=== PATIENT | male | born 1980 | race Caucasian/White ===

== ENCOUNTER → 2020-08-15 | Outpatient (CLI) | payer MEDICAID, OTHER | LOC: M OUTALCOH 08:14 | PROVIDERS: ATTEND Psychiatry & Neurology Psychiatry | DX: F16.20 Hallucinogen dependence, uncomplicated (principal); F10.20 Alcohol dependence, uncomplicated ==

== ENCOUNTER → 2020-08-20 | Outpatient (CLI) | payer OTHER ==
[2020-08-21 17:07] LABS: TESTOSTERONE FREE (DIRECT) 16.3 pg/mL (8.7-25.1)
== END ==
LOC: M LAB 09:35
PROVIDERS: ATTEND Urology
DX: N52.9 Male erectile dysfunction, unspecified (principal)

== ENCOUNTER 2020-08-28 13:00 | Outpatient (RCR) | payer MEDICAID | END 2020-09-14 | LOC: M OUTALCOH 13:00 | PROVIDERS: ATTEND Psychiatry & Neurology Psychiatry | DX: F10.20 Alcohol dependence, uncomplicated (principal); F16.20 Hallucinogen dependence, uncomplicated; F14.10 Cocaine abuse, uncomplicated; F17.200 Nicotine dependence, unspecified, uncomplicated ==

== ENCOUNTER → 2020-11-05 | Outpatient (REF) | payer MEDICAID, OTHER ==
[2020-11-05 17:59] LABS: BASO % 0.3 % (0.0-1.0); EOS # 0.3 10^3/uL (0.0-0.5); EOS % 2.1 % (0.0-3.0); HEMATOCRIT 48.7 % (42.0-52.0); HEMOGLOBIN 16.3 g/dl (13.5-17.5); LYMPH # 2.9 10^3/uL (1.5-5.0); LYMPH % 24.7 % (24.0-44.0); MEAN CORPUSCULAR HEMOGLOBIN 30.3 pg (27.0-33.0); MEAN CORPUSCULAR HGB CONC 33.5 g/dl (32.0-36.5); MEAN CORPUSCULAR VOLUME 90.5 fl (80.0-96.0); MONO # 1.3 10^3/uL (0.0-0.8); MONO % 11.3 % (2.0-8.0); NEUTROPHILS # 7.2 10^3/uL (1.5-8.5); NEUTROPHILS % 61.3 % (36.0-66.0); PLATELET COUNT, AUTOMATED 255 10^3/uL (150-450); RED BLOOD COUNT 5.38 10^6/uL (4.30-6.10); WHITE BLOOD COUNT 11.8 10^3/uL (4.0-10.0)
[2020-11-05 18:16] LABS: ALBUMIN 3.7 GM/DL (3.2-5.2); ALT/SGPT 45 U/L (12-78); BILIRUBIN,TOTAL 0.4 MG/DL (0.2-1.0); BLOOD UREA NITROGEN 15 MG/DL (7-18); CARBON DIOXIDE LEVEL 28 MEQ/L (21-32); CHLORIDE LEVEL 109 MEQ/L (98-107); CHOLESTEROL LEVEL 198 MG/DL (<200); CHOLESTEROL RISK RATIO 4.604 (<5); CREATININE FOR GFR 1.03 MG/DL (0.70-1.30); GLOMERULAR FILTRATION RATE > 60.0 (>60); GLUCOSE, FASTING 93 MG/DL (70-100); HDL CHOLESTEROL 43 MG/DL (>40); LDL CHOLESTEROL 84 MG/DL (<100); NON-HDL-C 155 MG/DL; POTASSIUM SERUM 4.4 MEQ/L (3.5-5.1); SODIUM LEVEL 143 MEQ/L (136-145); TOTAL PROTEIN 6.7 GM/DL (6.4-8.2); TRIGLYCERIDES LEVEL 356 MG/DL (<150)
[2020-11-05 18:55] LABS: HEPATITIS C VIRUS ABY INDEX 0.7 INDEX (<0.8)
== END ==
LOC: M LAB REF 16:26
PROVIDERS: ATTEND Pediatrics
DX: Z11.4 Encounter for screening for human immunodeficiency virus [HIV] (principal); Z11.59 Encounter for screening for other viral diseases; Z76.89 Persons encountering health services in other specified circumstances; F10.10 Alcohol abuse, uncomplicated

== ENCOUNTER 2020-12-01 19:55 | Emergency (ER) | payer OTHER, MEDICAID ==
[~2020-12-01] VITALS: Ht 182.9 cm; Wt 109.1 kg
[~2020-12-01 19:55] MED LIST: HYDR-3363 PO; LOSA100T50 PO; LOSA50TA88 PO; PANT40TA29 PO; SERT25TA21 PO; SUCR1TAB56 PO
[2020-12-01] MEDS ORDERED: NS 1,000 ML IV ONE (21:20)
[2020-12-01] MEDS ORDERED: ONDANSETRON 4MG/2ML VIAL IV ONE (21:20)
[2020-12-01] MEDS: MORPHINE 4 MG/ML 1ML VIAL/SYRINGE (J2270) IV PRN ×2 (21:43→22:55)
[2020-12-01 22:00] VITALS: BP 166/104
[2020-12-01] MEDS ORDERED: ISOVUE-370 76% 100ML VIAL As Ordered ONE (22:08)
[2020-12-01 22:19] LABS: BASO % 0.4 % (0.0-1.0); EOS # 0.3 10^3/uL (0.0-0.5); EOS % 2.2 % (0.0-3.0); HEMATOCRIT 45.2 % (42.0-52.0); HEMOGLOBIN 15.8 g/dl (13.5-17.5); LYMPH # 3.8 10^3/uL (1.5-5.0); LYMPH % 33.7 % (24.0-44.0); MEAN CORPUSCULAR HEMOGLOBIN 30.9 pg (27.0-33.0); MEAN CORPUSCULAR VOLUME 88.5 fl (80.0-96.0); MONO # 0.9 10^3/uL (0.0-0.8); MONO % 7.6 % (2.0-8.0); NEUTROPHILS # 6.3 10^3/uL (1.5-8.5); NEUTROPHILS % 55.7 % (36.0-66.0); PLATELET COUNT, AUTOMATED 229 10^3/uL (150-450); RED BLOOD COUNT 5.11 10^6/uL (4.30-6.10); WHITE BLOOD COUNT 11.3 10^3/uL (4.0-10.0)
[2020-12-01 22:31] LABS: INR 0.96; PARTIAL THROMBOPLASTIN TIME 27.9 SECONDS (24.2-38.5)
[2020-12-01 23:03] LABS: ALBUMIN 3.8 GM/DL (3.2-5.2); ALT/SGPT 49 U/L (12-78); BILIRUBIN,DIRECT 0.1 MG/DL (0.0-0.2); BILIRUBIN,TOTAL 0.4 MG/DL (0.2-1.0); CK-MB VALUE MASS 1.5 NG/ML (<3.6); CPK CREATINE PHOSPHOKINASE 255 U/L (39-308); ETHYL ALCOHOL (ETHANOL) 0.211 % (0.000-0.010); LIPASE 115 U/L (73-393); MB/CK RELATIVE INDEX 0.59 (< OR =4); TOTAL PROTEIN 6.7 GM/DL (6.4-8.2); TROPONIN I < 0.02 NG/ML (< 0.10)
--- NOTE | 2020-12-01 23:15 | REPVR ---
PROCEDURE INFORMATION: Exam: CT Abdomen And Pelvis With Contrast Exam date and time: 12/01/2020 10:35 PM Age: 40 years old Clinical indication: Abdominal pain; Generalized; Additional info: Ruq/rlq abd pain, rectal bleeding TECHNIQUE: Imaging protocol: Computed tomography of the abdomen and pelvis with contrast. Axial, coronal and sagittal reformatted images were created and reviewed. Radiation optimization: All CT scans at this facility use at least one of these dose optimization techniques: automated exposure control; mA and/or kV adjustment per patient size (includes targeted exams where dose is matched to clinical indication); or iterative reconstruction. Contrast material: ISOVUE 370; Contrast volume: 100 ml; Contrast route: INTRAVENOUS (IV); COMPARISON: No relevant prior studies available. FINDINGS: Lungs: Mild dependent atelectatic change at the lung bases. Liver: Mild hepatic steatosis. Gallbladder and bile ducts: No radiodense gallstones. No biliary ductal dilatation. Pancreas: Unremarkable. Spleen: Unremarkable. Adrenal glands: Normal. No mass. Kidneys and ureters: No mass. No radiodense calculi. No hydronephrosis. Stomach and bowel: No bowel wall thickening. No obstruction. No pneumatosis. Appendix: Normal. Intraperitoneal space: No free fluid. No organized fluid collection. No free air. Vasculature: Mild atherosclerotic disease. No aneurysm or dissection. Lymph nodes: No pathologically enlarged lymph nodes. Urinary bladder: Unremarkable as visualized. Reproductive: Unremarkable. Bones/joints: No acute osseous abnormality. Mild degenerative changes. Soft tissues: Unremarkable. IMPRESSION: 1. No CT evidence of acute intra-abdominal or pelvic pathology. 2. Additional findings, as above. Electronically signed by: Brett Barroso On 12/01/2020 23:14:25 PM
--- NOTE | 2020-12-02 06:05 | ECGEPIP ---
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
== END 2020-12-02 01:21 | disposition home or self-care (01) ==
LOC: M ED 19:55
DX: K62.5 Hemorrhage of anus and rectum (principal); I10 Essential (primary) hypertension; F15.11 Other stimulant abuse, in remission; F14.11 Cocaine abuse, in remission; F17.200 Nicotine dependence, unspecified, uncomplicated; Z80.0 Family history of malignant neoplasm of digestive organs; Z79.899 Other long term (current) drug therapy; Z88.0 Allergy status to penicillin; Z88.5 Allergy status to narcotic agent
CPT/HCPCS: 74177; 80047; 80076; 82077; 82550; 82553; 83605; 83690; 85025; 85610; 85730; 86850; 86900; 86901; 93005; 93041; 96360; 96374; 96375; 96376; 99284; J2270; J2405; Q9967

== ENCOUNTER → 2020-12-22 | Outpatient (CLI) | payer OTHER, MEDICAID ==
[2020-12-22 11:39] LABS: BLOOD UREA NITROGEN 14 MG/DL (7-18); CALCIUM LEVEL 9.2 MG/DL (8.5-10.1); CARBON DIOXIDE LEVEL 28 MEQ/L (21-32); CHLORIDE LEVEL 105 MEQ/L (98-107); CREATININE FOR GFR 1.03 MG/DL (0.70-1.30); GLOMERULAR FILTRATION RATE > 60.0 (>60); GLUCOSE, FASTING 114 MG/DL (70-100); MAGNESIUM LEVEL 2.2 MG/DL (1.8-2.4); POTASSIUM SERUM 3.7 MEQ/L (3.5-5.1); SODIUM LEVEL 140 MEQ/L (136-145)
== END ==
LOC: M LAB 10:19
PROVIDERS: ATTEND Internal Medicine Cardiovascular Disease
DX: R94.31 Abnormal electrocardiogram [ECG] [EKG] (principal); I10 Essential (primary) hypertension; R23.2 Flushing

== ENCOUNTER → 2020-12-23 | Outpatient (REF) | payer OTHER, MEDICAID | LOC: M LAB REF 13:01 | PROVIDERS: ATTEND Internal Medicine Cardiovascular Disease | DX: R94.31 Abnormal electrocardiogram [ECG] [EKG] (principal); I10 Essential (primary) hypertension; R23.2 Flushing ==

== ENCOUNTER → 2021-01-01 | Outpatient (REF) | payer OTHER, MEDICAID | LOC: M LAB REF 15:13 | PROVIDERS: ATTEND Internal Medicine Cardiovascular Disease | DX: R23.2 Flushing (principal); R94.31 Abnormal electrocardiogram [ECG] [EKG]; I10 Essential (primary) hypertension ==

== ENCOUNTER 2021-02-02 12:58 | Emergency (ER) | payer OTHER ==
[~2021-02-02] VITALS: Ht 180.3 cm; Wt 107.2 kg
[~2021-02-02 12:58] MED LIST changes: -AMLO1TAB24; -ANOR1AER; -ASMA1AER3; -BUSP10TA; -CELE1CAP7; -FLUTISP; +LOSA100T45 PO; -LOSA100T50 PO; +LOSA50TA28 PO; -LOSA50TA88 PO; -VALS1TAB68
[2021-02-02] MEDS ORDERED: CELE1CAP7 PO (13:05)
[2021-02-02] MEDS ORDERED: FLUTISP NARES (13:05)
[2021-02-02] MEDS ORDERED: ASMA1AER3 INH (13:05)
[2021-02-02] MEDS ORDERED: VALS1TAB68 PO (13:05)
[2021-02-02] MEDS ORDERED: BUSP10TA PO (13:05)
[2021-02-02] MEDS ORDERED: ANOR1AER INH (13:05)
[2021-02-02] MEDS ORDERED: AMLO1TAB24 PO (13:05)
[2021-02-02 14:05] LABS: BASO % 0.4 % (0.0-1.0); EOS # 0.2 10^3/uL (0.0-0.5); HEMATOCRIT 46.1 % (42.0-52.0); HEMOGLOBIN 16.2 g/dl (13.5-17.5); LYMPH # 1.7 10^3/uL (1.5-5.0); LYMPH % 15.4 % (24.0-44.0); MEAN CORPUSCULAR HEMOGLOBIN 31.8 pg (27.0-33.0); MEAN CORPUSCULAR HGB CONC 35.1 g/dl (32.0-36.5); MEAN CORPUSCULAR VOLUME 90.6 fl (80.0-96.0); NEUTROPHILS # 8.2 10^3/uL (1.5-8.5); NEUTROPHILS % 72.8 % (36.0-66.0); PLATELET COUNT, AUTOMATED 221 10^3/uL (150-450); RED BLOOD COUNT 5.09 10^6/uL (4.30-6.10); WHITE BLOOD COUNT 11.2 10^3/uL (4.0-10.0)
[2021-02-02 14:34] LABS: BLOOD UREA NITROGEN 11 MG/DL (7-18); CARBON DIOXIDE LEVEL 29 MEQ/L (21-32); CHLORIDE LEVEL 105 MEQ/L (98-107); CREATININE FOR GFR 0.99 MG/DL (0.70-1.30); GLOMERULAR FILTRATION RATE > 60.0 (>60); GLUCOSE, FASTING 185 MG/DL (70-100); POTASSIUM SERUM 3.3 MEQ/L (3.5-5.1); SODIUM LEVEL 138 MEQ/L (136-145)
[2021-02-02 14:35] LABS: ALBUMIN 3.5 GM/DL (3.2-5.2); ALT/SGPT 77 U/L (12-78); BILIRUBIN,DIRECT 0.2 MG/DL (0.0-0.2); BILIRUBIN,TOTAL 0.7 MG/DL (0.2-1.0); CALCIUM LEVEL 8.8 MG/DL (8.5-10.1); LIPASE 97 U/L (73-393); TOTAL PROTEIN 6.6 GM/DL (6.4-8.2)
[2021-02-02] MEDS ORDERED: PANTOPRAZOLE 40MG VIAL (C9113 PER 1) IV ONE (15:25)
[2021-02-02 15:35] LABS: ETHYL ALCOHOL (ETHANOL) < 0.003 % (0.000-0.010)
[2021-02-02] MEDS ORDERED: hydrALAZINE 20MG/ML 1ML VIAL (J0360 PER 20MG) IV ONE (15:55)
[2021-02-02 16:03] VITALS: BP 174/111
[2021-02-02] MEDS: GASTROGRAFIN SOLUTION 30ML PO SCH ×2 (16:14→16:45)
[2021-02-02] MEDS ORDERED: LORazepam 2 MG/ML VIAL IV STA (17:25)
[2021-02-02] MEDS ORDERED: ISOVUE-370 76% 100ML VIAL As Ordered ONE (17:45)
[2021-02-02] MEDS ORDERED: PANT40TA29 PO (19:08)
[2021-02-02 19:50] VITALS: BP 177/89
== END 2021-02-02 19:50 | disposition home or self-care (01) ==
LOC: M ED 12:58
DX: K29.20 Alcoholic gastritis without bleeding (principal); K20.90 Esophagitis, unspecified without bleeding; I10 Essential (primary) hypertension; K76.0 Fatty (change of) liver, not elsewhere classified; K21.9 Gastro-esophageal reflux disease without esophagitis; F10.20 Alcohol dependence, uncomplicated; Z79.899 Other long term (current) drug therapy; Z88.0 Allergy status to penicillin; Z88.1 Allergy status to other antibiotic agents; Z88.5 Allergy status to narcotic agent
CPT/HCPCS: 74177; 80048; 80076; 82077; 83690; 85025; 93005; 96374; 96375; 99285; C9113; J0360; J2060; Q9963; Q9967

== ENCOUNTER → 2021-02-02 | Outpatient (CLI) | payer OTHER ==
[~2021-02-02] MED LIST changes: +AMLO1TAB24; +ANOR1AER; +ASMA1AER3; +BUSP10TA; +CELE1CAP7; +FLUTISP; +VALS1TAB68
== END ==
LOC: M SLEEP HO 10:48
PROVIDERS: ATTEND Internal Medicine Cardiovascular Disease
DX: R00.1 Bradycardia, unspecified (principal); E66.09 Other obesity due to excess calories; I10 Essential (primary) hypertension

== ENCOUNTER 2021-02-05 05:14 | Inpatient (IN) | payer OTHER ==
[~2021-02-05] VITALS: Ht 182.9 cm; Wt 109.1 kg
[~2021-02-05 05:14] MED LIST changes: +AMLO1TAB24 PO; +ANOR1AER INH; +ASMA1AER3 INH; +BUSP10TA PO; +CELE1CAP7 PO; +FLUTISP NARES; -LOSA100T45 PO; +LOSA100T50 PO; -LOSA50TA28 PO; +LOSA50TA88 PO; +VALS1TAB68 PO
[2021-02-05 06:07] LABS: BASO # 0.1 10^3/uL (0.0-0.2); BASO % 0.5 % (0.0-1.0); EOS # 0.2 10^3/uL (0.0-0.5); EOS % 2.5 % (0.0-3.0); HEMATOCRIT 46.8 % (42.0-52.0); HEMOGLOBIN 16.4 g/dl (13.5-17.5); LYMPH # 2.4 10^3/uL (1.5-5.0); LYMPH % 24.9 % (24.0-44.0); MEAN CORPUSCULAR HEMOGLOBIN 31.7 pg (27.0-33.0); MEAN CORPUSCULAR VOLUME 90.5 fl (80.0-96.0); MONO # 1.1 10^3/uL (0.0-0.8); MONO % 11.2 % (2.0-8.0); NEUTROPHILS # 5.9 10^3/uL (1.5-8.5); NEUTROPHILS % 60.6 % (36.0-66.0); PLATELET COUNT, AUTOMATED 286 10^3/uL (150-450); RED BLOOD COUNT 5.17 10^6/uL (4.30-6.10); WHITE BLOOD COUNT 9.7 10^3/uL (4.0-10.0)
[2021-02-05 06:31] LABS: ALT/SGPT 91 U/L (12-78); BLOOD UREA NITROGEN 6 MG/DL (7-18); CALCIUM LEVEL 8.8 MG/DL (8.5-10.1); CARBON DIOXIDE LEVEL 27 MEQ/L (21-32); CHLORIDE LEVEL 106 MEQ/L (98-107); CREATININE FOR GFR 1.18 MG/DL (0.70-1.30); GLOMERULAR FILTRATION RATE > 60.0 (>60); GLUCOSE, FASTING 139 MG/DL (70-100); POTASSIUM SERUM 3.7 MEQ/L (3.5-5.1); SODIUM LEVEL 146 MEQ/L (136-145)
[2021-02-05 06:32] LABS: ALBUMIN 3.6 GM/DL (3.2-5.2); BILIRUBIN,DIRECT 0.1 MG/DL (0.0-0.2); BILIRUBIN,TOTAL 0.2 MG/DL (0.2-1.0); CPK CREATINE PHOSPHOKINASE 328 U/L (39-308); LIPASE 182 U/L (73-393); MB/CK RELATIVE INDEX 0.61 (< OR =4); TOTAL PROTEIN 6.9 GM/DL (6.4-8.2); TROPONIN I < 0.02 NG/ML (< 0.10)
[2021-02-05] MEDS ORDERED: NS 1,000 ML IV ONE (06:35)
[2021-02-05] MEDS ORDERED: PROMETHAZINE INJ 25 MG/ML VIAL (J2550) IV ONE (06:35)
[2021-02-05] MEDS ORDERED: ISOVUE-370 76% 100ML VIAL As Ordered ONE (06:39)
--- NOTE | 2021-02-05 06:42 | ECGEPIP ---
[facility] - ED Test Date: 2021-02-05 Pat Name: ELIS KRAUS Department: Room: - Gender: Male Rn [employer]: MARIANA : 1980 Requested By: KEN White Order Number: [id number] Reading MD: Tawanda Maxwell Measurements Intervals [place] Rate: 92 P: 61 TN: 138 QRS: -25 QRSD: 90 T: 20 QT: 368 QTc: 455 Interpretive Statements Normal sinus rhythm SIMILAR TO 02/02/21 Electronically Signed on 02-05-2021 6:42:04 EDT by Tawanda Maxwell
[2021-02-05 06:43] LABS: ETHYL ALCOHOL (ETHANOL) 0.182 % (0.000-0.010)
[2021-02-05 07:40] LABS: RSV AMPLIFICATION NEGATIVE (NEGATIVE)
--- NOTE | 2021-02-05 07:40 | REPVR ---
PROCEDURE INFORMATION: Exam: XR Chest Exam date and time: 02/05/2021 5:35 AM Age: 40 years old Clinical indication: Other: Ap; Additional info: Abdominal pain TECHNIQUE: Imaging protocol: XR of the chest. Views: 1 view. COMPARISON: CR Chest, 1 view 11/13/2020 12:00 AM FINDINGS: Lungs: No consolidation. Pleural spaces: No pleural effusion. No pneumothorax. Heart/Mediastinum: No cardiomegaly. Bones/joints: Unremarkable. IMPRESSION: 1. There is no evidence of active pulmonary disease. 2. A followup PA and lateral radiograph is recommended when the patient is clinically able. Electronically signed by: Aravind Neff On 02/05/2021 07:40:16 AM
--- NOTE | 2021-02-05 07:43 | REPVR ---
PROCEDURE INFORMATION: Exam: CT Abdomen And Pelvis With Contrast Exam date and time: 02/05/2021 6:32 AM Age: 40 years old Clinical indication: Abdominal pain; Epigastric; Additional info: Epigastric pain, vomiting TECHNIQUE: Imaging protocol: Computed tomography of the abdomen and pelvis with contrast. Radiation optimization: All CT scans at this facility use at least one of these dose optimization techniques: automated exposure control; mA and/or kV adjustment per patient size (includes targeted exams where dose is matched to clinical indication); or iterative reconstruction. Contrast material: ISO; Contrast volume: 100 ml; Contrast route: INTRAVENOUS (IV); COMPARISON: CT ABD/PEL W/IV ORAL CONTRAS 02/02/2021 5:47 PM FINDINGS: Mediastinal space: There is a small hiatal hernia. Liver: There is fatty infiltration of the liver. Gallbladder and bile ducts: No calcified stones. No ductal dilation. Pancreas: Normal. No ductal dilation. Spleen: Normal. No splenomegaly. Adrenal glands: Normal. No mass. Kidneys and ureters: Normal. No hydronephrosis. Stomach and bowel: No obstruction. Appendix: No evidence of appendicitis. Intraperitoneal space: No free air. No significant fluid collection. Vasculature: No abdominal aortic aneurysm. Lymph nodes: No enlarged lymph nodes. Urinary bladder: Unremarkable as visualized. Reproductive: Unremarkable as visualized. Bones/joints: There are mild degenerative changes of the spine. Soft tissues: Unremarkable. IMPRESSION: There is no acute intra-abdominal finding. Electronically signed by: Aravind Neff On 02/05/2021 07:42:51 AM
[2021-02-05] MEDS: BUDESONIDE 180MCG INHALER (PULMICORT FLEXHALER) INH SCH ×2 (08:00→20:00)
[2021-02-05] MEDS: SALMETEROL DISKUS 50MCG INHALER (SEREVENT) INH SCH ×2 (08:00→20:00)
[2021-02-05] MEDS ORDERED: VENTAER INH (08:52)
[2021-02-05] MEDS ORDERED: PANT40TA29 PO (08:52)
[2021-02-05] MEDS: MORPHINE 4 MG/ML 1ML VIAL/SYRINGE (J2270) IV PRN ×2 (09:56→12:10)
[2021-02-05] MEDS ORDERED: ACETAMINOPHEN TAB 650MG DOSE (2X325MG) PO PRN (10:55)
[2021-02-05] MEDS ORDERED: MAALOX 30 ML SUSP *UDC PO PRN (10:55)
[2021-02-05] MEDS ORDERED: LORazepam 2 MG TAB PO PRN (10:55)
[2021-02-05] MEDS ORDERED: MOM 30ML SUSPENSION UDC PO PRN (10:55)
[2021-02-05] MEDS ORDERED: SUCRALFATE SUSP 1GM/10ML UD PO SCH (11:00)
[2021-02-05] MEDS ORDERED: ALBUTEROL 90 MCG/ACT 8GM HFA INHALER INH PRN (11:05)
[2021-02-05] MEDS: TIOTROPIUM INHALER/CAPSULE (SPIRIVA) INH SCH (11:54)
[2021-02-05] MEDS: MULTIVITAMINS/MINERALS THERAP 1 TAB PO SCH (11:57)
[2021-02-05] MEDS: THIAMINE 100 MG TAB PO SCH ×2 (11:57→21:00)
[2021-02-05] MEDS: NS 0.45% 1,000 ML IV SCH (11:57)
[2021-02-05] MEDS: FOLIC ACID 1 MG TAB PO SCH (11:57)
[2021-02-05] MEDS: SUCRALFATE SUSP 1GM/10ML UD PO SCH ×3 (11:57→21:00)
[2021-02-05 12:44] LABS: INR 0.93; PROTHROMBIN TIME 12.7 SECONDS (12.5-14.3)
[2021-02-05 12:45] LABS: PARTIAL THROMBOPLASTIN TIME 27.7 SECONDS (24.2-38.5)
[2021-02-05 16:20] VITALS: BP 152/102
--- NOTE | 2021-02-05 16:36 | HPEPDOC ---
General Date of Admission Feb 05, 2021 at 10:28 Date of Service: Feb 05, 2021 Attending Physician: LEOLA GUILLEN MD Chief Complaint The patient is a 40-year-old male admitted with a reason for visit of Chronic Alcoholic Gastritis. Source: Patient Exam Limitations: No limitations History of Present Illness History of present illness: Mr. 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 He states this pain is sharp, constant, and radiates to his right shoulder. The pain is made worse with eating and equally affected by solids, liquids, and medications like tums. He states that every time he consumes food he feels a sharp pain in his stomach and starts to vomit. He has noticed blood in the vomit in the form of "chunks". This morning his vomit looked "dark brown". He sees a GI doctor in [place] and had an EGD last year that was negative for esophageal varices. He takes protonix and sucralfate but has not been able to "keep down" any of his medications since last Tuesday. He has a history of chronic alcoholism but states he only drinks 1-2 beers per day. He presented to the ED on 02/02/21 for the same epigastric pain. He had a negative abdominal/pelvic CT scan and was given protonix. He was evaluated in the ED and admitted to the hospital for observation. 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 He started smoking at age 15 and smoked 1 ppd until recently. ETOH: Patient has a history of alcoholism and drank a 12 pack of beer per day up until a year ago. He now drinks 1-2 beers per day. Drugs: Patient denies ilicit drug use. Family history: Father: 2 years ago from colon cancer. Mother: Alive unsure of health conditions Sister: Alive and healthy Review of systems: Constitutional: Denies having fever, recent weight loss, or fatigue HEENT: Admits to chronic blurry vision secondary to congenital keratoconus (patient is legally blind), denies headaches, difficulty swallowing, swollen lymph nodes. Cardiovascular: Denies any chest pain or palpitations Respiratory: Denies shortness of breath, cough, wheezing, or at home oxygen use Gastrointestinal: Denies constipation, Admits to 2-3 loose stools per day, abdominal pain, nausea, and vomiting with noticable blood Genitourinary: Denies dysuria, hematuria or hematochezia. Extremities: Denies lower extremity swelling, muscle weakness, difficulty a mbulating Hematology/Oncology: Denies any easy bleeding or bruising. Physical examination: General: Patient is alert and oriented x3. He is lying in bed with his eyes closed for most of the examination Eyes: Injected sclera, PERRLA, EOMI HEENT: Mucous membranes pink and moist. Normocephalic, atraumatic. Trachea midline, no thyromegaly, or lymphadenopathy appreciated. Cardiovascular: Regular rate and rhythm. Not able to appreciate any murmurs Respiratory: Equal air movement bilaterally, scattered wheezes heard throughout posterior lung thorne. No rhonchi or rales noted Abdomen: Soft, bowel sounds positive, 6cm scar visible on lower right quadrant, epigastric tenderness to deep palpation noted, negative murphys sign, no guarding or rebound tenderness, no organomegaly noted. Extremities: no lower extremity edema noted on lower extremities, pulses 2+ throughout, capillary refill <2 seconds. Skin: No rashes or ulcerations present. No cyanosis. Imaging: Chest x-ray 02/05/21: 1. There is no evidence of active pulmonary disease. 2. A followup PA and lateral radiograph is recommended when the patient is clinically able. Abdomen/pelvis CT 02/05/21: There is no acute intra-abdominal finding. Assessment: Mr. 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 He has a history of chronic alcoholic gastritis and is suspected to have a peptic ulcer. He was admitted to hospital for observation and management of pain. Plan: #Acute on Chronic gastritis 2/2 likely chronic alcoholism -recently presented to ED on 02/02/21 for epigastric pain -10/10 epigastric pain of 6 days duration that radiates to right shoulder -Pain management 1mg morphine q 6 hours prn pain -Started IV protonix 40mg BID and sucralfate 1gm QID -Patient is on observation for 24 hours -Started on clear liquid diet and will advance as tolerated tomorrow -spoke to Dr. Lo, he does not feel like this requires an urgent endoscopy, patient can follow up with GI as an outpatient for EGD. #suspected Peptic ulcer -Epigastric pain of 6 days duration that is made worse with food -Patient states he has seen blood in vomitus -No rebound tenderness or guarding -AIMS65 score is 0-patient has 0.3% in hospital mortality risk from upper GI bleeding -Rockall score is 0 -patient has a 0.2% risk of mortality prior to endoscopy -patient needs outpatient EGD #Duodenal ulcers -patient has a history of duodenal ulcers, had EGD performed 1 year ago in [place]. -He did not have esophageal varices at time of prior EGD. 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 pylori test. #History of chronic alcoholism -Patient currently drinks 1-2 beers per day, he states he drank a 12 pack of beer a day up until a year ago. -started patient on CIWA protocol -Urine toxicology screen positive for ethyl alcohol 0.182 (high) -Patient is alert and oriented x 3 -Will discuss ETOH cessation with this patient #Hypertension -continue patient on at home medications -BP is 148/102 -Patient has not taken Valsartan or Norvasc in 6 days secondary to vomiting #likely Obstructive sleep apnea -patient had at home sleep study on 02/02/21 (Dr. 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 GME ATTESTATION My faculty preceptor for this patient encounter was physically present during the encounter and was fully available. All aspects of the patient interview, examination, medical decision making process, and medical care plan development were reviewed and approved by the faculty preceptor. The faculty preceptor is aware and concurs with the plan as stated in the body of this note and will attest to such by his/her cosignature. Home Medications Scheduled Amlodipine Besylate (Amlodipine Besylate) 5 Mg Tablet, 5 MG PO DAILY, (Reported) Buspirone HCl (Buspirone HCl) 10 Mg Tablet, 10 MG PO TID, (Reported) Celecoxib (Celecoxib) 100 Mg Capsule, 100 MG PO BID, (Reported) Mometasone Furoate (Asmanex Hfa) 200 Mcg/Act Hfa.aer.ad, 2 PUFFS INH DAILY, (Reported) Pantoprazole Sodium (Pantoprazole Sodium) 40 Mg Tablet.dr, 40 MG PO BID, (Reported) Sucralfate (Sucralfate) 1 Gm Tablet, 1 GM PO ACHS, (Reported) Umeclidinium Brm/Vilanterol Tr (Anoro Ellipta 62.5-25 Mcg INH) 1 Each Blst.w.dev, 1 PUFF INH DAILY, (Reported) Valsartan (Valsartan) 320 Mg Tablet, 320 MG PO DAILY, (Reported) Scheduled PRN Albuterol Sulfate (Ventolin Hfa) 18 Gm Hfa.aer.ad, 2 PUFF INH QID PRN for SHORTNESS OF BREATH, (Reported) Fluticasone Propionate (Fluticasone Propionate) 16 Gm [place].susp, 2 SPRAYS NARES DAILY PRN for CONGESTION, (Reported) Hydroxyzine HCl (Hydroxyzine HCl) 25 Mg Tablet, 25 MG PO TID PRN for ANXIETY, (Reported) Allergies Coded Allergies: Penicillins (Verified Allergy, Severe, THROAT CLOSES, 11/12/20) erythromycin base (Verified Allergy, Severe, HIVES & THROAT CLOSES, 11/12/20) hydrocodone (Verified Adverse Reaction, Mild, VOMITING, 11/12/20) A-FIB/CHADSVASC A-FIB History Current/History of A-Fib/PAF?: No Current PO Anticoag Therapy: No Vital Signs Vital Signs Date Time Temp Pulse Resp B/P (MAP) Pulse Ox O2 Delivery O2 Flow Rate FiO2 02/05/21 13:38 76 20 93 Room Air 02/05/21 13:30 147/74 (98) 02/05/21 10:21 98.1 Laboratory Data Labs 24H Laboratory Tests 2 02/05/21 05:46: Immature Granulocyte % (Auto) 0.3, Neutrophils (%) (Auto) 60.6, Lymphocytes (%) (Auto) 24.9, Monocytes (%) (Auto) 11.2H, Eosinophils (%) (Auto) 2.5, Basophils (%) (Auto) 0.5, Neutrophils # (Auto) 5.9, Lymphocytes # (Auto) 2.4, Monocytes # (Auto) 1.1H, Eosinophils # (Auto) 0.2, Basophils # (Auto) 0.1, Nucleated Red Blood Cells % (auto) 0.0, Anion Gap 13, Glomerular Filtration Rate > 60.0, Lactic Acid Level 1.8, Calcium Level 8.8, Total Bilirubin 0.2#, Direct Bilirubin 0.1, Aspartate Amino Transf (AST/SGOT) 45H, Alanine Aminotransferase (ALT/SGPT) 91H, Alkaline Phosphatase 108, Total Creatine Kinase 328H, Creatine Kinase MB 2.0, Creatine Kinase MB Relative Index 0.61, Troponin I < 0.02, Total Protein 6.9, Albumin 3.6, Albumin/Globulin Ratio 1.1, Lipase 182, Ethyl Alcohol Level 0.182H 02/05/21 06:55: Coronavirus (COVID-19)(PCR) NEGATIVE, Influenza Type A (RT-PCR) NEGATIVE, Influenza Type B (RT-PCR) NEGATIVE, Respiratory Syncytial Virus (PCR) NEGATIVE 02/05/21 12:25: Prothrombin Time 12.7, Prothromb Time International Ratio 0.93, Activated Partial Thromboplast Time 27.7 CBC/BMP Laboratory Tests 02/05/21 05:46 Plan / VTE VTE Prophylaxis Ordered?: Yes LIZA BERNSTEIN DO Feb 05, 2021 16:36
[2021-02-05 16:40] VITALS: BP 148/102
[2021-02-05] MEDS ORDERED: MORPHINE 2 MG/ML 1ML VIAL (J2270) IV PRN (17:05)
[2021-02-05] MEDS: NICOTINE 7 MG/24 HR TRANSDERMAL TD SCH (17:31)
[2021-02-05] MEDS ORDERED: FLUTICASONE PROP 0.05% NASAL SPRAY 16 GM (FLONASE) NARES PRN (18:30)
[2021-02-05] MEDS ORDERED: hydrOXYzine 25 MG TAB PO PRN (18:30)
[2021-02-05] MEDS: PANTOPRAZOLE 40MG VIAL (C9113 PER 1) IV SCH (20:59)
[2021-02-05] MEDS: DOCUSATE SODIUM 100MG CAPSULE PO SCH (21:00)
[2021-02-05] MEDS: busPIRone 10 MG TAB PO SCH (21:00)
[2021-02-05 22:00] VITALS: BP 140/82
[2021-02-06] MEDS: NS 0.45% 1,000 ML IV SCH (01:18)
[2021-02-06 06:00] VITALS: BP 142/78
[2021-02-06] MEDS: PANTOPRAZOLE 40MG VIAL (C9113 PER 1) IV SCH (07:58)
[2021-02-06] MEDS: SUCRALFATE SUSP 1GM/10ML UD PO SCH ×2 (07:58→12:37)
[2021-02-06 07:59] VITALS: BP 160/85
[2021-02-06] MEDS: FOLIC ACID 1 MG TAB PO SCH (07:59)
[2021-02-06] MEDS: MULTIVITAMINS/MINERALS THERAP 1 TAB PO SCH (07:59)
[2021-02-06 08:00] VITALS: BP 160/85
[2021-02-06] MEDS: busPIRone 10 MG TAB PO SCH (08:00)
[2021-02-06] MEDS: THIAMINE 100 MG TAB PO SCH (08:00)
[2021-02-06] MEDS: DOCUSATE SODIUM 100MG CAPSULE PO SCH (08:00)
[2021-02-06] MEDS: NICOTINE 7 MG/24 HR TRANSDERMAL TD SCH (08:06)
[2021-02-06 08:24] LABS: BASO % 0.3 % (0.0-1.0); EOS # 0.3 10^3/uL (0.0-0.5); EOS % 3.1 % (0.0-3.0); HEMATOCRIT 45.5 % (42.0-52.0); HEMOGLOBIN 15.5 g/dl (13.5-17.5); LYMPH # 2.2 10^3/uL (1.5-5.0); MEAN CORPUSCULAR HEMOGLOBIN 31.3 pg (27.0-33.0); MEAN CORPUSCULAR HGB CONC 34.1 g/dl (32.0-36.5); MEAN CORPUSCULAR VOLUME 91.9 fl (80.0-96.0); MONO # 1.1 10^3/uL (0.0-0.8); MONO % 9.8 % (2.0-8.0); NEUTROPHILS # 7.4 10^3/uL (1.5-8.5); NEUTROPHILS % 66.3 % (36.0-66.0); PLATELET COUNT, AUTOMATED 257 10^3/uL (150-450); RED BLOOD COUNT 4.95 10^6/uL (4.30-6.10); WHITE BLOOD COUNT 11.1 10^3/uL (4.0-10.0)
[2021-02-06] MEDS: SALMETEROL DISKUS 50MCG INHALER (SEREVENT) INH SCH (08:42)
[2021-02-06] MEDS: TIOTROPIUM INHALER/CAPSULE (SPIRIVA) INH SCH (08:42)
[2021-02-06] MEDS: BUDESONIDE 180MCG INHALER (PULMICORT FLEXHALER) INH SCH (08:43)
[2021-02-06 08:57] LABS: ALBUMIN 3.2 GM/DL (3.2-5.2); ALT/SGPT 76 U/L (12-78); BILIRUBIN,TOTAL 0.4 MG/DL (0.2-1.0); BLOOD UREA NITROGEN 6 MG/DL (7-18); CALCIUM LEVEL 8.4 MG/DL (8.5-10.1); CARBON DIOXIDE LEVEL 28 MEQ/L (21-32); CHLORIDE LEVEL 106 MEQ/L (98-107); CREATININE FOR GFR 0.99 MG/DL (0.70-1.30); GLOMERULAR FILTRATION RATE > 60.0 (>60); GLUCOSE, FASTING 125 MG/DL (70-100); POTASSIUM SERUM 3.9 MEQ/L (3.5-5.1); SODIUM LEVEL 142 MEQ/L (136-145); TOTAL PROTEIN 6.1 GM/DL (6.4-8.2)
[2021-02-06] MEDS ORDERED: VALSARTAN 80 MG TAB (DIOVAN) PO SCH (09:00)
[2021-02-06] MEDS ORDERED: amLODIPine 5 MG TAB PO SCH (09:00)
[2021-02-06] MEDS ORDERED: PANTOPRAZOLE 40MG TAB (PROTONIX) PO SCH (09:00)
--- NOTE | 2021-02-06 12:48 | DS.PDOC ---
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 HISTORY OF PRESENT ILLNESS: Mr. 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 He states this pain is sharp, constant, and radiates to his right shoulder. The pain is made worse with eating and equally affected by solids, liquids, and medications like tums. He states that every time he consumes food he feels a sharp pain in his stomach and starts to vomit. He has noticed blood in the vomit in the form of "chunks". This morning his vomit looked "dark brown". He sees a GI doctor in [place] and had an EGD last year that was negative for esophageal varices. He takes protonix and sucralfate but has not been able to "keep down" any of his medications since last Tuesday. He has a history of chronic alcoholism but states he only drinks 1- 2 beers per day. He presented to the ED on 02/02/21 for the same epigastric pain. He had a negative abdominal/pelvic CT scan and was given protonix. He was evaluated in the ED and admitted to the hospital for observation. HOSPITAL COURSE: #Acute on Chronic gastritis 2/2 likely chronic alcoholism -He recently presented to ED on 02/02/21 for epigastric pain and presented again on 02/05/21 with 10/10 epigastric pain of 6 days duration that radiates to right shoulder -The patient was given 4mg of morphine in the ED and continued pain management with 1mg morphine q 6 hours prn pain. -The patient was given IV protonix and sucralfate -Patient was started on clear liquid diet and observed overnight. He was able to eat a solid meal for breakfast and tolerated this well without pain, nausea, or vomiting. -We spoke to Dr. Lo who did not believe this warranted an emergent endoscopy ([place] and AIMS65 scores=0). The patient will follow up with GI for an elective endoscopy. #suspected Peptic ulcer -The patient presented with Epigastric pain of 6 days duration that is made worse with food. He states that he vomited after meals and noticed "chunks" of blood in vomitus. -Patient was given IV protonix and sucralfate and put on a clear liquids diet for mild bowel rest. He was able to tolerate a full breakfast. He has a history of duodenal ulcers and will need outpatient follow up for an elective endoscopy to evaluate for additional ulcers. We ordered an H. pylori test which is still pending, this can be followed up outpatient. 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 #History of chronic alcoholism -Patient drinks "a couple" of beers daily. He has a heavy drinking history and states that he started drinking at 15 and would drink a 12 pack of beer per day up until one year ago. He had a positive urine tox screen for ethyl alcohol (0.182) upon admission and was placed on CIWA protocol. I discussed the importance of alcohol cessation with the patient. He states he has a good support group up here and will continue to work on improving his drinking habits. He was discharged with informative information on alcoholism and its effects on the body. #Hypertension -Blood pressure was elevated upon admission. The patient states he was unable to take any of his blood pressure medications in the last 6 days because he would vomit them up. He was continued on valsartan and norvasc and took his morning blood pressure medications prior to discharge. #likely Obstructive sleep apnea -patient had at home sleep study on 02/02/21 (Dr. Forrest). 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 I advised patient to follow up with this upon discharge. #undiagnosed COPD -He states that he has not had a formal PFT test in the past. He believes he was started on rescue and maintenance inhalers due to exertional asthma. He was continued on home inhalers and oxygen parameters were in place during his ho spitalization. He did not become hypoxic or require oxygen during hospitalization. #Tobacco use disorder -Patient has a 25 pack/year smoking history. He has been weaning himself off of cigarettes and is down to 1/2 ppd. He states he is interested in trying nicotine lozenges and will discuss this with his PCP. I spoke to the patient about the importance of smoking cessation. 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 The patient is legally blind and is due to have a corneal transplant of left cornea in near future. DISCHARGE MEDICATIONS: Please see below. ALLERGIES: Please see below. PHYSICAL EXAMINATION ON DISCHARGE: VITAL SIGNS: Please see below. GENERAL: well nourished male lying comfortably in bed HEENT: Normocephalic, atraumatic, sclera clear, mucous membranes moist, trachea midline NECK: supple CARDIOVASCULAR EXAMINATION: regular rate and rhythm, no murmurs appreciated RESPIRATORY EXAMINATION: Equal inspiration bilaterally, scattered expiratory wheezes appreciated, no rhonchi or rales ABDOMINAL EXAMINATION: non distended, soft, positive bowel sounds, slight tenderness to deep palpation of epigastric region. Negative little's sign, no guarding or rebound tenderness. EXTREMITIES: No appreciable edema in bilateral lower extremities, pulses 2+ throughout PSYCHIATRIC EXAMINATION: appropriate mood, alert and oriented x3 LABORATORY DATA: Please see below. IMAGING: Chest x-ray 02/05/21: 1. There is no evidence of active pulmonary disease. 2. A followup PA and lateral radiograph is recommended when the patient is clinically able. Abdomen/pelvis CT 02/05/21: There is no acute intra-abdominal finding. PROGNOSIS: Good ACTIVITY: As tolerated DIET: Regular diet as tolerated, avoid caffeine and spicy food DISCHARGE PLAN: Discharge to home DISPOSITION:The patient is medically cleared and doing well. DISCHARGE INSTRUCTIONS: -Follow up with Dr. Lo's office within 1 week of discharge -Follow up with PCP within 1 week of discharge ITEMS TO FOLLOWUP ON ON OUTPATIENT: -Outpatient Endoscopy with Dr. Lo -Alcohol cessation -Smoking cessation -Pulmonary function test, if not already performed. Patient is on rescue and maintenance inhalers and states he has not been diagnosed with COPD. He should follow up with PCP to address this. -Inpatient formal sleep evaluation for NIKI, patient had positive at home sleep study (02/02/21) and was recommended to follow up. DISCHARGE CONDITION: Stable TIME SPENT ON DISCHARGE: 25 minutes. Vital Signs/I&Os Vital Signs Date Time Temp Pulse Resp B/P (MAP) Pulse Ox O2 Delivery O2 Flow Rate FiO2 02/06/21 08:00 75 160/85 02/06/21 06:00 98.5 21 96 Room Air I&O- Last 24 Hours up to 6 AM 02/06/21 06:00 Intake Total 2540 ml Output Total 0 ml Balance 2540 ml Laboratory Data Labs 24H Laboratory Tests 2 02/06/21 07:42: Immature Granulocyte % (Auto) 0.5, Neutrophils (%) (Auto) 66.3H, Lymphocytes (%) (Auto) 20.0L, Monocytes (%) (Auto) 9.8H, Eosinophils (%) (Auto) 3.1H, Basophils (%) (Auto) 0.3, Neutrophils # (Auto) 7.4, Lymphocytes # (Auto) 2.2, Monocytes # (Auto) 1.1H, Eosinophils # (Auto) 0.3, Basophils # (Auto) 0.0, Nucleated Red Blood Cells % (auto) 0.0, Anion Gap 8, Glomerular Filtration Rate > 60.0, Calcium Level 8.4L, Total Bilirubin 0.4#, Aspartate Amino Transf (AST/SGOT) 32, Alanine Aminotransferase (ALT/SGPT) 76, Alkaline Phosphatase 109, Total Protein 6.1L, Albumin 3.2, Albumin/Globulin Ratio 1.1 CBC/BMP Laboratory Tests 02/06/21 07:42 Discharge Medications Scheduled Amlodipine Besylate (Amlodipine Besylate) 5 Mg Tablet, 5 MG PO DAILY, (Reported) Buspirone HCl (Buspirone HCl) 10 Mg Tablet, 10 MG PO TID, (Reported) Celecoxib (Celecoxib) 100 Mg Capsule, 100 MG PO BID, (Reported) Mometasone Furoate (Asmanex Hfa) 200 Mcg/Act Hfa.aer.ad, 2 PUFFS INH DAILY, (Reported) Pantoprazole Sodium (Pantoprazole Sodium) 40 Mg Tablet.dr, 40 MG PO BID, (Reported) Sucralfate (Sucralfate) 1 Gm Tablet, 1 GM PO ACHS, (Reported) Umeclidinium Brm/Vilanterol Tr (Anoro Ellipta 62.5-25 Mcg INH) 1 Each Blst.w.dev, 1 PUFF INH DAILY, (Reported) Valsartan (Valsartan) 320 Mg Tablet, 320 MG PO DAILY, (Reported) Scheduled PRN Albuterol Sulfate (Ventolin Hfa) 18 Gm Hfa.aer.ad, 2 PUFF INH QID PRN for SHORTNESS OF BREATH, (Reported) Fluticasone Propionate (Fluticasone Propionate) 16 Gm [place].susp, 2 SPRAYS NARES DAILY PRN for CONGESTION, (Reported) Hydroxyzine HCl (Hydroxyzine HCl) 25 Mg Tablet, 25 MG PO TID PRN for ANXIETY, (Reported) Allergies Coded Allergies: Penicillins (Verified Allergy, Severe, THROAT CLOSES, 11/12/20) erythromycin base (Verified Allergy, Severe, HIVES & THROAT CLOSES, 11/12/20) hydrocodone (Verified Adverse Reaction, Mild, VOMITING, 11/12/20) LIZA BERNSTEIN DO Feb 06, 2021 12:48
== END 2021-02-06 13:40 | disposition home or self-care (01) | DRG 241 ==
LOC: M ED 05:14 → M ED INP 10:28 → ENRESERV 15:14 → M MS5PR 16:30
PROVIDERS: ADMIT Internal Medicine; ATTEND Internal Medicine
DX: K29.20 Alcoholic gastritis without bleeding (principal); K27.9 Peptic ulcer, site unspecified, unspecified as acute or chronic, without hemorrhage or perforation; J44.9 Chronic obstructive pulmonary disease, unspecified; G47.33 Obstructive sleep apnea (adult) (pediatric); I10 Essential (primary) hypertension; H54.8 Legal blindness, as defined in USA; H18.603 Keratoconus, unspecified, bilateral; F17.210 Nicotine dependence, cigarettes, uncomplicated; Z79.899 Other long term (current) drug therapy; Z88.0 Allergy status to penicillin; Z88.5 Allergy status to narcotic agent; Z94.7 Corneal transplant status

== ENCOUNTER → 2021-04-30 | Outpatient (CLI) | payer OTHER ==
[~2021-04-30] MED LIST changes: +VENTAER INH
--- NOTE | 2021-05-04 14:34 | SLEEPCENT ---
DATE: 04/30/2021 ORDERED BY: SB Thomas Nocturnal polysomnography was performed for the titration of pressure therapy in this patient with a clinical diagnosis of obstructive sleep apnea syndrome, respiratory disturbance index 69.9. For testing, the patient was fit with a ResMed Air-Fit F20 full mask of medium size, 4 cm of water pressure were applied to the circuit and the lights were extinguished. Six hours and 2 minutes of data were reviewed. There were 278 minutes of sleep identified. Sleep latency was mildly prolonged at 48 minutes. REM latency also at 132 minutes. Sleep architecture improved with optimal pressure therapy and there was evidence of prolonged REM after 1 a.m. Overall sleep efficiency 77.7%. The electrocardiogram showed a sinus rhythm with an average heart rate of 68 beats per minute. EEG showed normal waveforms for wake and sleep. Respiratory events were best palliated with CPAP of pressure of 13, some limb activity was appreciated. The limb movement arousal index on this occasion was 5.6. IMPRESSIONS: Obstructive sleep apnea syndrome (G47.33). RECOMMENDATION: Nightly use of pressure therapy 14 cm of water. cc: KEN ROCKWELL M.D.
== END ==
LOC: M SLEEP 20:00
PROVIDERS: ATTEND Physician Assistant
DX: G47.33 Obstructive sleep apnea (adult) (pediatric) (principal)

== ENCOUNTER → 2021-05-13 | Outpatient (CLI) | payer OTHER, MEDICAID ==
[2021-05-13 13:38] LABS: BASO % 0.3 % (0.0-1.0); EOS # 0.2 10^3/uL (0.0-0.5); EOS % 2.1 % (0.0-3.0); HEMOGLOBIN 18.4 g/dl (13.5-17.5); LYMPH # 2.1 10^3/uL (1.5-5.0); LYMPH % 22.5 % (24.0-44.0); MEAN CORPUSCULAR HEMOGLOBIN 27.8 pg (27.0-33.0); MEAN CORPUSCULAR HGB CONC 32.3 g/dl (32.0-36.5); MEAN CORPUSCULAR VOLUME 86.1 fl (80.0-96.0); MONO # 0.9 10^3/uL (0.0-0.8); MONO % 9.8 % (2.0-8.0); NEUTROPHILS # 5.9 10^3/uL (1.5-8.5); PLATELET COUNT, AUTOMATED 229 10^3/uL (150-450); RED BLOOD COUNT 6.62 10^6/uL (4.30-6.10); WHITE BLOOD COUNT 9.1 10^3/uL (4.0-10.0)
[2021-05-13 14:00] LABS: ALBUMIN 3.8 GM/DL (3.2-5.2); ALT/SGPT 32 U/L (12-78); BILIRUBIN,DIRECT 0.1 MG/DL (0.0-0.2); BILIRUBIN,TOTAL 0.4 MG/DL (0.2-1.0); BLOOD UREA NITROGEN 15 MG/DL (7-18); CREATININE FOR GFR 1.08 MG/DL (0.70-1.30); GLOMERULAR FILTRATION RATE > 60.0 (>60); IRON (FE) 101 UG/DL (65-175); PERCENT SATURATION 23.5 % (19.7-50.0); TOTAL IRON BINDING CAPACITY 430 UG/DL (250-450); TOTAL PROTEIN 7.2 GM/DL (6.4-8.2)
[2021-05-15 06:08] LABS: IGASUB2 192.5 mg/dL (73.2-301.2); IgA SERUM (part of Subclasses) 265 mg/dL (90-386); TISSUE TRANSGLUTAMINASE IgA <2 U/mL (0-3)
== END ==
LOC: M LAB 12:19
PROVIDERS: ATTEND Internal Medicine Gastroenterology
DX: K26.9 Duodenal ulcer, unspecified as acute or chronic, without hemorrhage or perforation (principal)

== ENCOUNTER → 2021-05-14 | Outpatient (REF) | payer OTHER, MEDICAID | LOC: M LAB REF 11:31 | PROVIDERS: ATTEND Internal Medicine Gastroenterology | DX: K26.9 Duodenal ulcer, unspecified as acute or chronic, without hemorrhage or perforation (principal) ==

== ENCOUNTER 2021-08-09 09:29 | Emergency (ER) | payer MEDICAID, OTHER ==
[~2021-08-09] VITALS: Ht 182.9 cm; Wt 100.0 kg
[~2021-08-09 09:29] MED LIST changes: +LOSA100T45 PO; -LOSA100T50 PO; +LOSA50TA28 PO; -LOSA50TA88 PO
[2021-08-09 10:12] LABS: BASO % 0.4 % (0.0-1.0); EOS # 0.5 10^3/uL (0.0-0.5); EOS % 5.2 % (0.0-3.0); HEMATOCRIT 51.5 % (42.0-52.0); HEMOGLOBIN 17.2 g/dl (13.5-17.5); LYMPH % 21.4 % (24.0-44.0); MEAN CORPUSCULAR HEMOGLOBIN 29.5 pg (27.0-33.0); MEAN CORPUSCULAR HGB CONC 33.4 g/dl (32.0-36.5); MEAN CORPUSCULAR VOLUME 88.3 fl (80.0-96.0); MONO # 0.7 10^3/uL (0.0-0.8); MONO % 7.8 % (2.0-8.0); NEUTROPHILS # 6.2 10^3/uL (1.5-8.5); NEUTROPHILS % 64.9 % (36.0-66.0); PLATELET COUNT, AUTOMATED 263 10^3/uL (150-450); RED BLOOD COUNT 5.83 10^6/uL (4.30-6.10); WHITE BLOOD COUNT 9.5 10^3/uL (4.0-10.0)
[2021-08-09 10:29] LABS: BLOOD UREA NITROGEN 14 MG/DL (7-18); CALCIUM LEVEL 9.1 MG/DL (8.5-10.1); CARBON DIOXIDE LEVEL 30 MEQ/L (21-32); CHLORIDE LEVEL 107 MEQ/L (98-107); CREATININE FOR GFR 1.14 MG/DL (0.70-1.30); GLOMERULAR FILTRATION RATE > 60.0 (>60); GLUCOSE, FASTING 129 MG/DL (70-100); POTASSIUM SERUM 4.8 MEQ/L (3.5-5.1); SODIUM LEVEL 142 MEQ/L (136-145)
[2021-08-09 10:42] VITALS: BP 170/100
== END 2021-08-09 11:09 | disposition home or self-care (01) ==
LOC: M ED 09:29
DX: I10 Essential (primary) hypertension (principal); Z79.899 Other long term (current) drug therapy; Z88.0 Allergy status to penicillin; Z88.5 Allergy status to narcotic agent

== ENCOUNTER 2021-11-05 11:21 | Emergency (ER) | payer OTHER ==
[~2021-11-05] VITALS: Ht 182.9 cm; Wt 109.1 kg
[2021-11-05] MEDS ORDERED: GERI8.6T (11:31)
[2021-11-05] MEDS ORDERED: DOCU100C16 (11:31)
[2021-11-05] MEDS ORDERED: KETOROLAC 30 MG/ML 1ML VIAL IM ONE (12:30)
[2021-11-05] MEDS ORDERED: LIDOCAINE 5% (LIDODERM) PATCH TD ONE (12:30)
[2021-11-05] MEDS ORDERED: methocarbamoL 500 MG TAB PO ONE (12:30)
[2021-11-05 13:23] VITALS: BP 180/134
[2021-11-05] MEDS ORDERED: **NOTE PATIENT COMMENT** MISC XX SCH (21:00)
== END 2021-11-05 13:45 | disposition home or self-care (01) ==
LOC: M ED 11:21
DX: S43.421A Sprain of right rotator cuff capsule, initial encounter (principal); I10 Essential (primary) hypertension; W10.9XXA Fall (on) (from) unspecified stairs and steps, initial encounter; Y92.099 Unspecified place in other non-institutional residence as the place of occurrence of the external cause; Y93.9 Activity, unspecified; Y99.9 Unspecified external cause status; M54.9 Dorsalgia, unspecified; E78.5 Hyperlipidemia, unspecified; J44.9 Chronic obstructive pulmonary disease, unspecified; H54.8 Legal blindness, as defined in USA; Z94.7 Corneal transplant status; K29.20 Alcoholic gastritis without bleeding; F17.200 Nicotine dependence, unspecified, uncomplicated; Z79.899 Other long term (current) drug therapy; Z88.0 Allergy status to penicillin; Z88.1 Allergy status to other antibiotic agents; Z88.5 Allergy status to narcotic agent
CPT/HCPCS: 73030; 96372; 99284; J1885

== ENCOUNTER 2021-11-25 20:58 | Emergency (ER) | payer OTHER ==
[~2021-11-25] VITALS: Ht 182.9 cm; Wt 109.1 kg
[~2021-11-25 20:58] MED LIST changes: +DOCU100C16; +GERI8.6T
[2021-11-25 22:43] VITALS: BP 168/100
== END 2021-11-25 23:36 | disposition left against medical advice (07) ==
LOC: M ED 20:58
DX: Z53.21 Procedure and treatment not carried out due to patient leaving prior to being seen by health care provider (principal)

== ENCOUNTER → 2022-11-09 | Outpatient (REF) | payer OTHER ==
[~2022-11-09] MED LIST changes: -ASMA1AER3 INH; +FLUT50SP17 NARES; -FLUTISP NARES; +MOME13HF5 INH
[2022-11-09 17:15] LABS: BASO # 0.1 10^3/uL (0.0-0.2); BASO % 0.6 % (0.0-1.0); EOS # 0.3 10^3/uL (0.0-0.5); EOS % 2.7 % (0.0-3.0); HEMATOCRIT 49.1 % (42.0-52.0); HEMOGLOBIN 16.7 g/dl (13.5-17.5); LYMPH # 2.5 10^3/uL (1.5-5.0); LYMPH % 24.1 % (24.0-44.0); MEAN CORPUSCULAR HEMOGLOBIN 31.2 pg (27.0-33.0); MEAN CORPUSCULAR VOLUME 91.6 fl (80.0-96.0); MONO # 1.2 10^3/uL (0.0-0.8); NEUTROPHILS # 6.4 10^3/uL (1.5-8.5); NEUTROPHILS % 61.2 % (36.0-66.0); PLATELET COUNT, AUTOMATED 265 10^3/uL (150-450); RED BLOOD COUNT 5.36 10^6/uL (4.30-6.10); WHITE BLOOD COUNT 10.5 10^3/uL (4.0-10.0)
[2022-11-09 17:41] LABS: ALBUMIN 3.8 G/DL (3.2-5.2); ALKALINE PHOSPHATASE 100 U/L (46-116); ALT/SGPT 105 U/L (7.0-40); AST/SGOT 44 U/L (<34); BILIRUBIN,TOTAL 0.4 MG/DL (0.3-1.2); BLOOD UREA NITROGEN 11 MG/DL (9-23); CALCIUM LEVEL 8.9 MG/DL (8.5-10.1); CARBON DIOXIDE LEVEL 30 MMOL/L (20-31); CHLORIDE LEVEL 107 MMOL/L (98-107); CREATININE FOR GFR 0.96 MG/DL (0.70-1.30); GLOMERULAR FILTRATION RATE > 60.0 (>60); GLUCOSE, FASTING 94 MG/DL (60-100); POTASSIUM SERUM 4.7 MMOL/L (3.5-5.1); SODIUM LEVEL 141 MMOL/L (136-145); TOTAL PROTEIN 6.8 G/DL (5.7-8.2)
[2022-11-09 17:42] LABS: THYROID STIMULATING HORMONE 1.722 uIU/ML (0.55-4.78)
== END ==
LOC: M LAB REF 16:21
PROVIDERS: ATTEND Pediatrics
DX: F10.10 Alcohol abuse, uncomplicated (principal); I10 Essential (primary) hypertension

== ENCOUNTER → 2023-03-25 | Outpatient (REF) | payer MEDICARE, OTHER ==
[~2023-03-25] MED LIST changes: -CELE1CAP7 PO; +CELE1CAP8 PO; -LOSA100T45 PO; +LOSA100T46 PO
[2023-03-25 18:40] LABS: ALBUMIN 3.9 G/DL (3.2-5.2); BILIRUBIN,DIRECT 0.2 MG/DL (<0.4); BILIRUBIN,TOTAL 0.5 MG/DL (0.3-1.2); TOTAL PROTEIN 7.2 G/DL (5.7-8.2)
== END ==
LOC: M LAB REF 17:16
PROVIDERS: ATTEND Pediatrics
DX: F10.10 Alcohol abuse, uncomplicated (principal)

== ENCOUNTER → 2023-05-13 | Outpatient (CLI) | payer MEDICARE, MEDICAID ==
[~2023-05-13] MED LIST changes: -CELE1CAP8 PO; +CELE1CAP99 PO
== END ==
LOC: M PLAIMG 10:55
PROVIDERS: ATTEND Otolaryngology
DX: J32.8 Other chronic sinusitis (principal)

== ENCOUNTER → 2023-06-22 | Day surgery (SDC) | payer MEDICARE, MEDICAID ==
[~2023-06-22] VITALS: Ht 182.9 cm; Wt 107.5 kg
[~2023-06-22] MED LIST changes: +AZEL1SPR3 NARES; +BRIM0.2S13 OU; +DORZ2SOL4 OU; -FLUT50SP17 NARES; +FLUTISP NARES; +GNPTAB36 PO; +LIDOCAINE 2% 100MG/5ML SDV (FOR ANES.) As Ordered ONE; +MOME50SP2 NARES; +MONT10TA97 PO; +NS 1,000 ML IV ONE; +PREDOPD OU; +hydrALAZINE 20MG/ML 1ML VIAL As Ordered ONE; +propofoL 200 MG/20 ML VIAL As Ordered ONE
[2023-06-22 11:23] VITALS: TEMP 97.8
[2023-06-22 11:35] VITALS: BP 131/83; O2SAT 98
== END | disposition home or self-care (01) ==
LOC: M OPP 09:12
PROVIDERS: ATTEND Surgery
DX: K64.0 First degree hemorrhoids (principal); K92.1 Melena; F17.200 Nicotine dependence, unspecified, uncomplicated; G47.30 Sleep apnea, unspecified; Z99.89 Dependence on other enabling machines and devices; Z79.2 Long term (current) use of antibiotics; Z79.52 Long term (current) use of systemic steroids; Z79.899 Other long term (current) drug therapy; Z88.0 Allergy status to penicillin; Z88.1 Allergy status to other antibiotic agents; Z88.5 Allergy status to narcotic agent
CPT/HCPCS: 45378; J0360

== ENCOUNTER → 2023-10-12 | Outpatient (REF) | payer MEDICARE, MEDICAID ==
[~2023-10-12] MED LIST changes: -GERI8.6T; -LIDOCAINE 2% 100MG/5ML SDV (FOR ANES.) As Ordered ONE; -NS 1,000 ML IV ONE; +SENN-193; -hydrALAZINE 20MG/ML 1ML VIAL As Ordered ONE; -propofoL 200 MG/20 ML VIAL As Ordered ONE
== END ==
LOC: M LAB REF 12:24
PROVIDERS: ATTEND Physician Assistant
DX: J02.9 Acute pharyngitis, unspecified (principal)

== ENCOUNTER → 2023-10-18 | Outpatient (CLI) | payer MEDICARE, MEDICAID | LOC: M OUTALCOH 07:43 | PROVIDERS: ATTEND Psychiatry & Neurology Psychiatry | DX: Z03.89 Encounter for observation for other suspected diseases and conditions ruled out (principal) ==

== ENCOUNTER → 2023-11-22 | Outpatient (REF) | payer MEDICARE, MEDICAID ==
[2023-11-22 17:03] LABS: ALBUMIN 3.4 G/DL (3.2-5.2); ALKALINE PHOSPHATASE 119 U/L (46-116); ALT/SGPT 29 U/L (7.0-40); AST/SGOT 16 U/L (<34); BILIRUBIN,DIRECT 0.1 MG/DL (<0.4); BILIRUBIN,TOTAL 0.3 MG/DL (0.3-1.2); BLOOD UREA NITROGEN 18 MG/DL (9-23); CALCIUM LEVEL 9.6 MG/DL (8.5-10.1); CARBON DIOXIDE LEVEL 28 MMOL/L (20-31); CHLORIDE LEVEL 107 MMOL/L (98-107); CHOLESTEROL LEVEL 196 MG/DL (<200); GLOMERULAR FILTRATION RATE > 60.0 (>60); GLUCOSE, FASTING 126 MG/DL (60-100); HDL CHOLESTEROL 30.6 MG/DL (>40); LDL CHOLESTEROL 93.6 MG/DL (<100); NON-HDL-C 165.4 MG/DL; POTASSIUM SERUM 4.3 MMOL/L (3.5-5.1); SODIUM LEVEL 142 MMOL/L (136-145); TOTAL PROTEIN 6.5 G/DL (5.7-8.2); TRIGLYCERIDES LEVEL 359 MG/DL (<150)
[2023-11-22 17:04] LABS: THYROID STIMULATING HORMONE 1.336 uIU/ML (0.55-4.78)
[2023-11-22 17:23] LABS: CREATININE, URINE 224.6 MG/DL; MAU/CREAT RATIO 4.4 MCG/MG (0.0-30.0)
[2023-11-22 17:45] LABS: HEMOGLOBIN A1c 5.8 % (4.0-6.0)
== END ==
LOC: M LAB REF 16:12
PROVIDERS: ATTEND Pediatrics
DX: F10.10 Alcohol abuse, uncomplicated (principal); I10 Essential (primary) hypertension; E66.9 Obesity, unspecified; Z68.33 Body mass index [BMI] 33.0-33.9, adult

== ENCOUNTER → 2024-05-02 | Outpatient (CLI) | payer MEDICARE, MEDICAID ==
[2024-05-02 16:11] LABS: HEMATOCRIT 48.2 % (42.0-52.0); HEMOGLOBIN 16.3 g/dl (13.5-17.5); MEAN CORPUSCULAR HEMOGLOBIN 29.2 pg (27.0-33.0); MEAN CORPUSCULAR HGB CONC 33.8 g/dl (32.0-36.5); MEAN CORPUSCULAR VOLUME 86.4 fl (80.0-96.0); PLATELET COUNT, AUTOMATED 303 10^3/uL (150-450); RED BLOOD COUNT 5.58 10^6/uL (4.30-6.10); WHITE BLOOD COUNT 12.3 10^3/uL (4.0-10.0)
[2024-05-02 16:34] LABS: ALBUMIN 3.8 G/DL (3.2-5.2); ALKALINE PHOSPHATASE 140 U/L (46-116); ALT/SGPT 46 U/L (7.0-40); AST/SGOT 15 U/L (<34); BILIRUBIN,TOTAL 0.4 MG/DL (0.3-1.2); BLOOD UREA NITROGEN 21 MG/DL (9-23); CALCIUM LEVEL 10.4 MG/DL (8.5-10.1); CARBON DIOXIDE LEVEL 29 MMOL/L (20-31); CHLORIDE LEVEL 108 MMOL/L (98-107); CREATININE FOR GFR 1.05 MG/DL (0.70-1.30); GLOMERULAR FILTRATION RATE > 60.0 (>60); GLUCOSE, FASTING 183 MG/DL (60-100); POTASSIUM SERUM 4.6 MMOL/L (3.5-5.1); SODIUM LEVEL 142 MMOL/L (136-145); TOTAL PROTEIN 7.1 G/DL (5.7-8.2)
[2024-05-02 16:36] LABS: THYROID STIMULATING HORMONE 2.153 uIU/ML (0.55-4.78)
== END ==
LOC: M LAB 15:45
PROVIDERS: ATTEND Nurse Practitioner Family
DX: F31.9 Bipolar disorder, unspecified (principal)

== ENCOUNTER → 2024-05-24 | Outpatient (CLI) | payer MEDICARE, MEDICAID ==
[2024-05-24 10:28] LABS: PLATELET COUNT, AUTOMATED 297 10^3/uL (150-450)
[2024-05-24 10:42] LABS: INR 0.87; PARTIAL THROMBOPLASTIN TIME 29.2 SECONDS (24.8-34.2); PROTHROMBIN TIME 12.1 SECONDS (12.5-14.5)
== END ==
LOC: M LAB 09:44
PROVIDERS: ATTEND Physical Medicine & Rehabilitation
DX: Z01.818 Encounter for other preprocedural examination (principal); M54.12 Radiculopathy, cervical region

== ENCOUNTER → 2024-06-27 | Outpatient (CLI) | payer MEDICARE, MEDICAID | LOC: M LAB 09:22 | PROVIDERS: ATTEND Ophthalmology | DX: H53.469 Homonymous bilateral field defects, unspecified side (principal) ==

== ENCOUNTER → 2024-08-01 | Outpatient (CLI) | payer MEDICARE, MEDICAID ==
[~2024-08-01] MED LIST changes: +PROHANCE 279.3MG/ML 15ML VIAL ONE; +PROHANCE 279.3MG/ML 5ML VIAL ONE
== END ==
LOC: M PLAIMG 07:33
PROVIDERS: ATTEND Ophthalmology
DX: H53.469 Homonymous bilateral field defects, unspecified side (principal)
CPT/HCPCS: 70543; 70553; A9576

== ENCOUNTER → 2024-08-17 | Outpatient (CLI) | payer MEDICARE, MEDICAID ==
[~2024-08-17] MED LIST changes: -PROHANCE 279.3MG/ML 15ML VIAL ONE; -PROHANCE 279.3MG/ML 5ML VIAL ONE
[2024-08-17 09:47] LABS: HEMATOCRIT 46.9 % (42.0-52.0); HEMOGLOBIN 15.9 g/dl (13.5-17.5); MEAN CORPUSCULAR HEMOGLOBIN 29.2 pg (27.0-33.0); MEAN CORPUSCULAR HGB CONC 33.9 g/dl (32.0-36.5); MEAN CORPUSCULAR VOLUME 86.2 fl (80.0-96.0); PLATELET COUNT, AUTOMATED 281 10^3/uL (150-450); RED BLOOD COUNT 5.44 10^6/uL (4.30-6.10); WHITE BLOOD COUNT 9.9 10^3/uL (4.0-10.0)
[2024-08-17 10:20] LABS: ALBUMIN 3.8 G/DL (3.2-5.2); ALKALINE PHOSPHATASE 176 U/L (40-129); ALT/SGPT 35 U/L (7.0-40); AST/SGOT 14 U/L (<34); BILIRUBIN,TOTAL 0.7 MG/DL (0.3-1.2); BLOOD UREA NITROGEN 21 MG/DL (9-23); CALCIUM LEVEL 9.3 MG/DL (8.5-10.1); CARBON DIOXIDE LEVEL 27 MMOL/L (20-31); CHLORIDE LEVEL 107 MMOL/L (98-107); CREATININE FOR GFR 0.93 MG/DL (0.70-1.30); GLOMERULAR FILTRATION RATE > 60.0 (>60); GLUCOSE, FASTING 197 MG/DL (60-100); POTASSIUM SERUM 4.6 MMOL/L (3.5-5.1); SODIUM LEVEL 140 MMOL/L (136-145); TOTAL PROTEIN 6.7 G/DL (5.7-8.2)
== END ==
LOC: M LAB 09:22
PROVIDERS: ATTEND Ophthalmology
DX: T86.840 Corneal transplant rejection (principal); Z79.624 Long term (current) use of inhibitors of nucleotide synthesis; Z79.899 Other long term (current) drug therapy

== ENCOUNTER → 2024-09-18 | Outpatient (REF) | payer MEDICARE, MEDICAID ==
[2024-09-18 13:54] LABS: CREATININE, URINE 85.6 MG/DL
[2024-09-18 13:55] LABS: MAU/CREAT RATIO 60.7 MCG/MG (0.0-30.0)
[2024-09-18 20:29] LABS: THYROID STIMULATING HORMONE 2.075 uIU/ML (0.55-4.78)
[2024-09-18 20:35] LABS: CHOLESTEROL LEVEL 395 MG/DL (<200); CHOLESTEROL RISK RATIO 12.26 (<5); HDL CHOLESTEROL 32.2 MG/DL (>40); NON-HDL-C 362.8 MG/DL; TRIGLYCERIDES LEVEL 2671 MG/DL (<150)
[2024-09-18 21:03] LABS: HEMOGLOBIN A1c 10.1 % (4.0-6.0)
== END ==
LOC: M LAB REF 12:14
PROVIDERS: ATTEND Pediatrics
DX: E11.65 Type 2 diabetes mellitus with hyperglycemia (principal)

== ENCOUNTER → 2024-11-20 | Outpatient (CLI) | payer MEDICARE, MEDICAID | LOC: M RAD 08:44 | PROVIDERS: ATTEND Pediatrics | DX: J45.909 Unspecified asthma, uncomplicated (principal) ==

== ENCOUNTER → 2024-11-21 | Outpatient (REF) | payer MEDICARE, MEDICAID | LOC: M SMT 13:28 | PROVIDERS: ATTEND Urology | DX: Z30.2 Encounter for sterilization (principal) ==

== ENCOUNTER → 2025-01-28 | Outpatient (REF) | payer MEDICARE, MEDICAID ==
[2025-01-28 12:36] LABS: SEMEN APPEARANCE OPAQUE (OPAQUE); SEMEN VISCOSITY LIQUID (LIQUID); SEMEN VOLUME 1.4 ml (2.0-5.0); WBC CONCENTRATION <=1 M/ml (<=1 M/ml)
== END ==
LOC: M SMT 12:31
PROVIDERS: ATTEND Urology
DX: Z30.8 Encounter for other contraceptive management (principal)

== ENCOUNTER 2025-02-23 18:07 | Emergency (ER) | payer MEDICARE, MEDICAID ==
[~2025-02-23] VITALS: Ht 182.9 cm; Wt 110.5 kg
[2025-02-23 18:14] VITALS: BP 131/84; TEMP 96.7; O2SAT 96
[2025-02-23] MEDS: LIDOCAINE 4% CREAM 5 GM (LMX4) TOP ONE (19:09)
[2025-02-23] MEDS: ACETAMINOPHEN 325 MG TAB PO ONE (20:53)
== END 2025-02-23 21:48 | disposition left against medical advice (07) ==
LOC: M ED 18:07
DX: S89.91XA Unspecified injury of right lower leg, initial encounter (principal); Z53.9 Procedure and treatment not carried out, unspecified reason; W03.XXXA Other fall on same level due to collision with another person, initial encounter; Y92.008 Other place in unspecified non-institutional (private) residence as the place of occurrence of the external cause; Y93.9 Activity, unspecified; Y99.9 Unspecified external cause status; I10 Essential (primary) hypertension; E11.9 Type 2 diabetes mellitus without complications; K52.9 Noninfective gastroenteritis and colitis, unspecified; F17.200 Nicotine dependence, unspecified, uncomplicated; Z94.7 Corneal transplant status; Z79.899 Other long term (current) drug therapy; Z88.0 Allergy status to penicillin; Z88.1 Allergy status to other antibiotic agents; Z88.5 Allergy status to narcotic agent

== ENCOUNTER → 2025-03-08 | Outpatient (REF) | payer MEDICARE, MEDICAID ==
[2025-03-08 13:32] LABS: CREATININE, URINE 178.9 MG/DL; MALB URINE SIEMENS 6.0 MG/L; MAU/CREAT RATIO 3.3 MCG/MG (0.0-30.0)
[2025-03-08 15:11] LABS: ALT/SGPT 31 U/L (7.0-40); AST/SGOT 19 U/L (<34); CALCIUM LEVEL 10.0 MG/DL (8.5-10.1); CARBON DIOXIDE LEVEL 29 MMOL/L (20-31); CHLORIDE LEVEL 105 MMOL/L (98-107); CHOLESTEROL LEVEL 123 MG/DL (<200); CHOLESTEROL RISK RATIO 4.86 (<5); CREATININE FOR GFR 1.00 MG/DL (0.70-1.30); GLOMERULAR FILTRATION RATE > 90.0 (>60); LDL CHOLESTEROL 36.3 MG/DL (<100); NON-HDL-C 97.7 MG/DL; POTASSIUM SERUM 4.4 MMOL/L (3.5-5.1); SODIUM LEVEL 143 MMOL/L (136-145); TRIGLYCERIDES LEVEL 307 MG/DL (<150)
[2025-03-08 15:26] LABS: ESTIMATED AVERAGE GLUCOSE 137.0 MG/DL (60-110)
== END ==
LOC: M LAB REF 11:53
PROVIDERS: ATTEND Pediatrics
DX: E11.65 Type 2 diabetes mellitus with hyperglycemia (principal); E78.2 Mixed hyperlipidemia

== ENCOUNTER → 2025-03-12 | Outpatient (CLI) | payer MEDICARE, MEDICAID | LOC: M PLAIMG 08:59 | PROVIDERS: ATTEND Physician Assistant | DX: R91.8 Other nonspecific abnormal finding of lung field (principal) ==

== ENCOUNTER → 2025-05-23 | Outpatient (CLI) | payer MEDICARE, MEDICAID ==
[~2025-05-23] MED LIST changes: +METHACHOLINE KIT (6 VIAL.NEB PREMIX) INH ONE
== END ==
LOC: M CARPUL 07:40
PROVIDERS: ATTEND Physician Assistant
DX: R06.00 Dyspnea, unspecified (principal)
CPT/HCPCS: 94070; 95070; J7674

== ENCOUNTER → 2025-06-05 | Outpatient (REF) | payer MEDICARE, MEDICAID ==
[~2025-06-05] MED LIST changes: -METHACHOLINE KIT (6 VIAL.NEB PREMIX) INH ONE
[2025-06-05 15:25] LABS: ESTIMATED AVERAGE GLUCOSE 117.0 MG/DL (60-110)
[2025-06-05 15:42] LABS: ALT/SGPT 23 U/L (7.0-40); AST/SGOT 14 U/L (<34); CALCIUM LEVEL 9.5 MG/DL (8.5-10.1); CARBON DIOXIDE LEVEL 28 MMOL/L (20-31); CHLORIDE LEVEL 103 MMOL/L (98-107); CREATININE FOR GFR 0.89 MG/DL (0.70-1.30); GLOMERULAR FILTRATION RATE > 90.0 (>60); POTASSIUM SERUM 4.7 MMOL/L (3.5-5.1); SODIUM LEVEL 139 MMOL/L (136-145)
== END ==
LOC: M LAB REF 14:46
PROVIDERS: ATTEND Pediatrics
DX: E11.65 Type 2 diabetes mellitus with hyperglycemia (principal)

== ENCOUNTER → 2025-06-21 | Outpatient (REF) | payer MEDICARE, MEDICAID ==
[2025-06-21 10:18] LABS: SEMEN APPEARANCE OPAQUE (OPAQUE); SEMEN VISCOSITY LIQUID (LIQUID); SEMEN VOLUME 2.0 ml (2.0-5.0); WBC CONCENTRATION <=1 M/ml (<=1 M/ml)
== END ==
LOC: M SMT 10:09
PROVIDERS: ATTEND Urology
DX: Z30.8 Encounter for other contraceptive management (principal)

== ENCOUNTER → 2025-07-17 | Outpatient (CLI) | payer MEDICARE, MEDICAID ==
[2025-07-17 09:35] LABS: CALCIUM LEVEL 9.7 MG/DL (8.5-10.1); CARBON DIOXIDE LEVEL 29 MMOL/L (20-31); CHLORIDE LEVEL 106 MMOL/L (98-107); CREATININE FOR GFR 0.93 MG/DL (0.70-1.30); GLOMERULAR FILTRATION RATE > 90.0 (>60); POTASSIUM SERUM 4.5 MMOL/L (3.5-5.1); SODIUM LEVEL 142 MMOL/L (136-145)
== END ==
LOC: M EKG 08:25
PROVIDERS: ATTEND Pediatrics
DX: Z01.818 Encounter for other preprocedural examination (principal)